=== PATIENT | male | born 1965 | race Caucasian/White ===

== ENCOUNTER → 2016-12-06 | Outpatient (CLI) | payer OTHER | LOC: RAD 08:53 | DX: R05 Cough (principal); R06.02 Shortness of breath ==

== ENCOUNTER → 2017-07-02 | Outpatient (CLI) | payer BC ==
[~2017-07-02] MED LIST: ALEVE220 MG PO; ASPIRIN325 PO; ATORVASTATIN CA40 MG PO; BENADRYL25 MG PO; BUPROPION HCL150 M1 PO; CALCIUM + VITA1 EAC2 PO; DIOVAN 80 MG TA80 M1 PO; FISH OIL 1,2001 EAC4 PO; FLAX SEED OIL1000 MG PO; HAIR SKIN NAIL1 EACH PO; HYDROCODONE-ACE15 ML PO; IRON325 PO; METFORMIN HCL500 MG PO; MULTI VITAMIN1 EACH PO; OMEPRAZOLE40 MG PO; PEPCID20 MG PO; PREDNISONE 20 M20 MG PO; PROBIOTIC1 EAC1 PO; TYLENOL325 MG PO; VITAMIN B125000 MCG PO; VITAMIN E400 UNIT PO; WELLBUTRIN XL300 MG PO; ZYRTEC 10 MG TA10 MG PO
== END ==
LOC: RAD 09:11
DX: R05 Cough (principal)

== ENCOUNTER → 2017-11-19 | Outpatient (CLI) | payer BC ==
--- NOTE | ~2017-11-19 | EKG ---
[address] [address] ELECTROCARDIOGRAM REPORT Name: ALICE MARISCAL Room #: [facility]#: [id number] Admission: 11/19/17 Attend Phys: Priya Briggs MD, Discharge: Date of : 63 Report #: [id number] THIS REPORT FOR: //name// [facility] Test Date: 2017-11-19 Test Time: 11:19:26 Pat Name: ALICE MARISCAL Department: Room: Gender: M Phys Assistant: Donna BAKER : 1965 Requested By: Priya Briggs Order Number: [id number] MD: Farshad Herring Measurements Intervals [place] Rate: 61 P: 22 FL: 157 QRS: 81 QRSD: 109 T: 68 QT: 426 QTc: 429 Interpretive Statements Sinus rhythm Early R-wave progression No previous ECG available for comparison Electronically Signed On 11-19-2017 17:09:04 CDT by Farshad Herring [email or web address] <ELECTRONICALLY SIGNED> By: Farshad Herring MD, [facility] 11/19/17 1709 1119 1119 Farshad Herring MD, FACC /EPI
[2017-11-19 10:25] LABS: BASOPHILS 1.2 % (0.0-2.0); EOSINOPHILS 2.7 % (0.0-3.0); HEMOGLOBIN 15.4 gm/dL (14.0-18.0); MCH 29.8 pg (26.0-34.0); MCHC 33.5 g/dL (28.0-37.0); MCV 88.9 fL (80.0-100.0); MONOCYTES 7.2 % (1.0-8.0); PLATELET COUNT 190 thou/uL (150-400); POLYS 50.9 % (36.0-66.0); RBC 5.17 mil/uL (4.50-6.00); WBC 7.9 thou/uL (4.0-11.0)
[2017-11-19 10:40] LABS: ALBUMIN 4.5 g/dL (3.4-5.0); CALCIUM 9.4 mg/dL (8.5-10.1); CREATININE 0.9 mg/dL (0.7-1.3); POTASSIUM 4.2 mmol/L (3.5-5.1); TOTAL BILIRUBIN 0.5 mg/dL (<0.1-1.0)
== END ==
LOC: RAD 09:53
PROVIDERS: Surgery
DX: M46.04 Spinal enthesopathy, thoracic region (principal); J98.4 Other disorders of lung

== ENCOUNTER 2017-12-02 05:31 | Inpatient (IN) | payer BC ==
[~2017-12-02] VITALS: Ht 180.3 cm; Wt 125.2 kg
--- NOTE | ~2017-12-02 | O ---
[address] [address] OPERATIVE REPORT Name: ALICE MARISCAL Room #: 423-1 [facility] IN ..#: [id number] Admission: 12/02/17 Attend Phys: Priya Briggs MD, Discharge: 12/03/17 Date of : 63 Report #: [id number] THIS REPORT FOR: //name// CC: Priya Rowan DATE OF SERVICE: 12/02/2017 PREOPERATIVE DIAGNOSES: 1. Morbid obesity with a BMI of 40.22. 2. Hypertension. 3. Diabetes mellitus. 4. Obstructive sleep apnea. 5. Chronic fatigue. 6. Lumbago. 7. Hypercholesterolemia. 8. Gastroesophageal reflux disease. 9. Bilateral knee arthralgia. POSTOPERATIVE DIAGNOSES: 1. Morbid obesity with a BMI of 40.22. 2. Hypertension. 3. Diabetes mellitus. 4. Obstructive sleep apnea. 5. Chronic fatigue. 6. Lumbago. 7. Hypercholesterolemia. 8. Gastroesophageal reflux disease. 9. Bilateral knee arthralgia. PROCEDURES PERFORMED: 1. Laparoscopic sleeve gastrectomy. 2. Thorough esophagogastroduodenoscopy (EGD). SURGEON: Priya Briggs M.D. BUS STEWARD: Anoop Moseley DO. ANESTHESIA: General endotracheal anesthesia. ESTIMATED BLOOD LOSS: Minimal (less than 5 mL). COMPLICATIONS: None appreciated. SPECIMENS: Gastric sleeve resection specimen to pathology. [address] [address] OPERATIVE REPORT Name: ALICE MARISCAL Room #: 423-1 [facility]#: [id number] Admission: 12/02/17 Attend Phys: Priya Briggs MD, Discharge: 12/03/17 Date of : 63 Report #: [id number] INDICATIONS: The patient is a 51-year-old morbidly obese male with numerous medical comorbid conditions as delineated above who presented as an outpatient for evaluation of bariatric surgery and assistance with both weight loss and resolution of his comorbid conditions. The patient has been seen by his primary care physician and digital marketing project manager and a psychologist who have all cleared him for bariatric surgery as well as also indicating that it is medically necessary for long-term weight loss and assistance with resolution of his comorbid conditions. The patient has undergone aggressive diet and exercise attempts for the past several months under my direction with no significant sustainable weight loss thus far. As such, indication was for the above-mentioned procedures today. DESCRIPTION OF PROCEDURE: After explaining the risks, benefits and alternatives of the procedure with the patient in detail in the preoperative holding area and obtaining written consent, the patient was brought to the operating room and placed supine on the operating room table. After conducting a thorough timeout procedure verifying correct patient and procedure, the patient was given general endotracheal anesthesia. Once adequate anesthesia was attained, his SCDs were hooked up to pneumatic compression device. He was given a preoperative dose of antibiotics in line with the SCIP protocol. It should be noted that he got a dose of Lovenox 1 hour prior to the operating room as well to prevent venous thromboembolism. The patient's abdomen was now prepped and draped in a standard surgical sterile fashion after positioning him in the low lithotomy position with his legs in the Yellofin stirrups. I began the procedure by performing a thorough EGD. The Bannermann upper endoscope was used to intubate the oropharynx, was traversed down into the esophagus. This was advanced to the second portion of the duodenum where slow careful withdrawal of the scope showed no evidence of duodenitis, gastritis, esophagitis, mass lesions or ulcerations. Retroflexion view of the scope within the gastric lumen showed no evidence of a hiatal hernia. The scope was straightened out with its tip at the level of pylorus where it was taped into position. The stomach was fully desufflated and I sterilely entered the operative field. A 5 mL of 0.5% Marcaine with epinephrine were used to anesthetize the skin in the right upper quadrant, 5 cm cephalad to the umbilicus and 5 cm to the patient's right. A #15 bladed scalpel was used to create a 1.5 cm transverse skin incision at this location. A 15 mm Visiport was placed over 0 degree 5 mm laparoscope and was introduced through this incision site. Once intra-abdominal placement was verified visually, the obturator for the trocar and laparoscope were both removed and the abdomen was insufflated to 15 mmHg using carbon dioxide gas. The laparoscope was changed to a 5-mm 30-degree laparoscope, which was reintroduced through this trocar. The entire abdomen was evaluated to ensure no injury upon entry. I now placed three additional 5 mm trocars in the left mid abdomen. The first was placed 2 cm cephalad to the umbilicus and 2 cm in the patient's left, and an additional one was placed 5 cm lateral to that and a final one was placed in the extreme left lateral flank. All three additional 5 mm ports were placed under direct vision after anesthetizing the skin at each location with 5 mL of 0.5% Marcaine with [facility] [address] [place] [address] OPERATIVE REPORT Name: ALICE MARISCAL Room #: 423-1 [facility] IN [place]#: [id number] Admission: 12/02/17 Attend Phys: Priya Briggs MD, Discharge: 12/03/17 Date of : 63 Report #: [id number] epinephrine and I had created small skin nicks using a #15 bladed scalpel. The laparoscope was removed and changed to the 5 mm port just to the left of patient's umbilicus and he was placed in steep reverse Trendelenburg position. I now placed a Awilda liver retractor in subxiphoid location by anesthetizing the skin at that location with 5 mL of 0.5% Marcaine with epinephrine and I had created small skin geeta using #15 bladed scalpel. The Awilda retractor was placed through this defect where it was positioned up under the left lobe of the liver and was held up against the posterior aspect of the anterior abdominal wall. This gave us complete access to the stomach and hiatal regions and again saw no evidence of a hiatal hernia. I now started my dissection after identifying our landmarks. The vein of Schmidt was identified overlying the pylorus. I measured 4 cm proximal to this location and began taking down the short gastric arteries from this location all the way up the greater curvature of the stomach using Harmonic scalpel for hemostasis. Once I arrived upon the left iván, I dissected anteriorly up the left iván and elevated the stomach anteriorly as well, taking down all posterior gastric attachments staying well away from the posterior wall of the stomach to prevent injury from thermal spread. Now that we had complete mobilization of the stomach, the EGD scope was positioned to run along the lesser curvature of the stomach and the [place] 60 mm stapler with a black load utilizing Barillas's Wanda-Strip buttressing material was placed over it and this was entered in the abdomen through the 15 mm port. This first firing started at the location 4 cm proximal to the pylorus and fired right along, but not extremely tight to the scope, so as not to cause stricturing, especially at the incisura. A second firing again using black load with Barillas's Wanda-Strip buttressing material placed over it was carried out following the scope as a 34-Lao bougie. Five additional firings, all utilizing green loads with Barillas's Wanda-Strip buttressing material was carried out following the scope as a 34-Lao bougie all the way up to the left iván until the stomach was completely transected. This left an excellently oriented sleeve of gastric remnant that was not twisted and there was no bleeding. The resection specimen was placed in the right upper quadrant and 10 mL of Tisseel on the Saperionspray device were now used to coat the entirety of the staple line with fibrin glue after instilling 160 mg of decellularized amniotic powder that was reconstituted in 10 mL of normal saline that was dripped along the staple line to help prevent leaks as well. While this Tisseel overlying the amnion product was drying, the resection specimen was grasped and removed from the abdomen through the 15 mm fascial incision under direct vision. I then closed the 15 mm fascial incision using 0 PDS suture on the Milind-Yannick suture passer device and tied this down under direct vision to ensure I did not catch a loop of bowel or omentum in the suture repair. Now that the Tisseel had dried, normal saline was instilled in the upper abdomen and the EGD scope was reactivated and slowly withdrawn with gentle insufflation of the stomach upon withdrawal to evaluate the staple line from the inside, which showed no bleeding whatsoever. This gentle insufflation allowed me to hold the stomach under the normal saline in the abdomen and performed a leak test and we saw no bubbling thereby signifying a negative leak test. Thus, EGD scope was used to desufflate [facility] [address] [place] [address] OPERATIVE REPORT Name: ALICE MARISCAL Room #: 423-1 [facility]#: [id number] Admission: 12/02/17 Attend Phys: Priya Briggs MD, Discharge: 12/03/17 Date of : 63 Report #: [id number] the stomach, Adamson was removed via the oropharynx, passed off the field and I sterilely entered the operative field once again. Normal saline was suctioned out and it ran clear throughout. The Awilda retractor was removed under direct vision. The abdomen was fully desufflated. All remaining trocars were removed under direct vision. A 4-0 Monocryl was used in a standard subcuticular fashion for all skin incisions and Dermabond glue was applied to all skin wounds. The corner of the resection specimen that had been removed was trimmed away and normal saline was passively instilled into the resection specimen yielding 1850 mL in the resection specimen itself. At the end of the procedure, all instrument, needle and sponge counts were correct. The patient tolerated the procedure without incident, was awakened in the operating room, transitioned to the recovery room in stable condition with no apparent complications. <ELECTRONICALLY SIGNED> By: Priya Briggs MD, FACS 12/05/17 0839 1338 1559 Priya Briggs MD, FACS /nt
--- NOTE | ~2017-12-02 | PATH ---
[facility] [address] [place] [address] PATHOLOGY RPT PROCEDURE Name: ALICE MARISCAL Room #: 423-1 [facility] IN M.R.#: [id number] Admission: 12/02/17 Date of : 63 Discharge: 12/03/17 Report #: [id number] Path Case #: [id number] [facility] Accession Number: [id number] . 01 Material submitted: . PORTION OF STOMACH . 01 Clinical history: . Morbid obesity . 02 Diagnosis: Stomach, portion of stomach, laparoscopic sleeve partial gastrectomy: - No significant diagnostic abnormalities present, history of morbid obesity. (IUV:db; 12/03/2017) LBQ/12/03/2017 . 02 Electronically signed: . Lynn Feliciano MD, Pathologist NPI- [id number] . 01 Gross description: . The specimen is received in formalin, labeled "Alice Beth, portion of stomach (gastric sleeve)". Received is a partial gastrectomy specimen with a stapled margin of resection measuring 30.8 x 7.5 x 4.5 cm in greatest dimensions. The serosal surface is pink-cortez, smooth and glistening in appearance. Opening the specimen reveals pink-cortez to pink-red mucosa with normal rugal folds. A single polyp is identified measuring 0.3 cm in maximum dimensions. The specimen is submitted representatively in cassette A1, to include the aforementioned polyp. (CAA; 12/02/2017) QAC/QAC . 02 Pathologist provided ICD-10: E66.01 . 02 CPT . 265776 Performed at: [address], [place] [id number] MD Jason Peralta MD Phone: [phone] Performed at: [address] [id number] MD Lynn Feliciano MD Phone: [phone]
[~2017-12-02 05:31] MED LIST changes: -BUPROPION HCL150 M1 PO; -HYDROCODONE-ACE15 ML PO; -PEPCID20 MG PO; -PREDNISONE 20 M20 MG PO
[2017-12-02 07:48] VITALS: BP 129/76
[2017-12-02 23:00] VITALS: BP 126/76
[2017-12-03 04:30] VITALS: BP 163/72
[2017-12-03 05:50] LABS: HEMATOCRIT 41.8 % (42.0-52.0); MCH 29.8 pg (26.0-34.0); MCHC 33.4 g/dL (28.0-37.0); MCV 89.2 fL (80.0-100.0); RBC 4.68 mil/uL (4.50-6.00); WBC 11.1 thou/uL (4.0-11.0)
[2017-12-03 06:00] LABS: CALCIUM 8.7 mg/dL (8.5-10.1); CREATININE 0.9 mg/dL (0.7-1.3); POTASSIUM 3.7 mmol/L (3.5-5.1)
[2017-12-03 07:30] VITALS: BP 117/70
[2017-12-03] MEDS ORDERED: HYDROCODONE-ACE15 ML PO (09:30)
[2017-12-03 10:36] VITALS: BP 117/70
== END 2017-12-03 11:25 | disposition home or self-care (01) | DRG 621 ==
LOC: OR 05:31 → TBA 05:31 → OR 14:09 → 4E 15:28 → OR 15:28 → ENTRNSPT 12-03 11:06 → EDTRNSPTSTS 12-03 11:10 → 4E 12-03 11:25
PROVIDERS: Surgery
PROC: 3E0G8GC Introduction of Other Therapeutic Substance into Upper GI, Via Natural or Artificial Opening Endoscopic (ICD-10-PCS; principal; 2017-12-02)
PROC: 0DB64Z3 Excision of Stomach, Percutaneous Endoscopic Approach, Vertical (ICD-10-PCS; principal; 2017-12-02)
DX: E66.01 Morbid (severe) obesity due to excess calories (principal); I10 Essential (primary) hypertension; E11.9 Type 2 diabetes mellitus without complications; E78.00 Pure hypercholesterolemia, unspecified; G47.33 Obstructive sleep apnea (adult) (pediatric); F32.9 Major depressive disorder, single episode, unspecified; F41.9 Anxiety disorder, unspecified; R53.82 Chronic fatigue, unspecified; M54.5 Low back pain; K21.9 Gastro-esophageal reflux disease without esophagitis; M25.562 Pain in left knee; M25.561 Pain in right knee; Z68.41 Body mass index [BMI] 40.0-44.9, adult; Z88.1 Allergy status to other antibiotic agents
CPT/HCPCS: 10783; 50010; 50101; 50222; 50249; 50386; 50555; 50739; 50740; 50962; 51437; 52182; 52265; 53307; 53311; 54022; 54118; 56462; 56525; 56526; 56970; 57092; 62110; 62900; 70005

== ENCOUNTER → 2018-01-08 | Outpatient (CLI) | payer BC ==
[~2018-01-08] MED LIST changes: +BUPROPION HCL150 M1 PO; +HYDROCODONE-ACE15 ML PO
== END ==
LOC: ULTRA 09:21
DX: R16.2 Hepatomegaly with splenomegaly, not elsewhere classified (principal); I10 Essential (primary) hypertension; E78.00 Pure hypercholesterolemia, unspecified; E11.9 Type 2 diabetes mellitus without complications; E66.09 Other obesity due to excess calories

== ENCOUNTER 2018-07-26 09:48 | Emergency (ER) | payer BC ==
[~2018-07-26] VITALS: Ht 180.3 cm; Wt 88.5 kg
[~2018-07-26 09:48] MED LIST changes: +PEPCID20 MG PO; +PREDNISONE 20 M20 MG PO
[2018-07-26 09:50] VITALS: BP 136/81
[2018-07-26 10:08] LABS: ABSOLUTE NEUTROPHILS 8.6 thou/uL (1.4-8.2); BASOPHILS 0.7 % (0.0-2.0); EOSINOPHILS 1.7 % (0.0-3.0); HEMATOCRIT 43.1 % (42.0-52.0); HEMOGLOBIN 14.7 gm/dL (14.0-18.0); MCH 30.8 pg (26.0-34.0); MCV 90.6 fL (80.0-100.0); MONOCYTES 7.4 % (1.0-8.0); PLATELET COUNT 154 thou/uL (150-400); POLYS 71.2 % (36.0-66.0); RBC 4.76 mil/uL (4.50-6.00); RDW 13.7 % (10.5-14.5); WBC 12.1 thou/uL (4.0-11.0)
[2018-07-26 10:26] LABS: CALCIUM 9.2 mg/dL (8.5-10.1); POTASSIUM 3.7 mmol/L (3.5-5.1)
[2018-07-26 10:31] LABS: ALBUMIN 4.4 g/dL (3.4-5.0)
[2018-07-26 12:25] VITALS: BP 124/79
[2018-07-26 15:14] VITALS: BP 124/79
--- NOTE | 2018-07-27 14:18 | O ---
[facility] [place] [address] OPERATIVE REPORT Name: ALICE MARISCAL Room #: 170-9 ADM IN M.R.#: [id number] Admission: 07/26/18 ������������������ Attend Phys: Wang Rowan MD Discharge: ������������������ Date of : 63 Report #: [id number] THIS REPORT FOR: //name// CC: Wang Rowan DATE OF SERVICE: 07/26/2018 PREOPERATIVE DIAGNOSIS: Acute appendicitis. POSTOPERATIVE DIAGNOSIS: Acute appendicitis. PROCEDURE: Laparoscopic appendectomy. SURGEON: Priya Briggs M.D. ASSEMBLER CLIP ON SUNGLASSES: None. ANESTHESIA: General endotracheal anesthesia. ESTIMATED BLOOD LOSS: Minimal (less than 5 mL). COMPLICATIONS: None appreciated. SPECIMENS: Appendix to pathology. INDICATIONS: The patient is a 52-year-old male who presented with right lower quadrant abdominal pain and had a CT scan showing a markedly dilated appendix with periappendiceal stranding and a slight leukocytosis, all consistent with acute appendicitis. As such, indication was for the above-mentioned procedures today. DESCRIPTION OF PROCEDURE: After explaining the risks, benefits and alternatives of the procedure with the patient in detail in the preoperative holding area and obtaining written consent, the patient was brought to the operating room and placed supine on the operating room table. After conducting a thorough timeout procedure verifying correct patient and procedure, the patient was given general endotracheal anesthesia. Once adequate anesthesia was obtained, his SCDs were hooked up to pneumatic compression device. He was given a preoperative dose of antibiotics in line with the SCIP protocol. The patient's abdomen was prepped and draped in standard surgical sterile fashion. 5 mL of 0.5% Marcaine with epinephrine were used to anesthetize the skin in the infraumbilical location. A #15 bladed scalpel was used to create a 1 cm transverse skin incision at this location. A 12 mm Visiport was placed over 0 degree 5 mm laparoscope and was introduced through this incision site. Once intra-abdominal placement was verified visually, the obturator for the trocar and laparoscope were both removed, and the abdomen was insufflated to 15 mmHg using carbon dioxide gas. [address] [address] OPERATIVE REPORT Name: ALICE MARISCAL Room #: 170-9 [facility] IN .R.#: [id number] Admission: 07/26/18 ������������������ Attend Phys: Wang Rowan MD Discharge: ������������������ Date of : 63 Report #: [id number] The laparoscope was changed to a 5-mm 30-degree laparoscope and was reintroduced through this trocar. The entire abdomen was evaluated to ensure no injury upon entry and no pathology outside the right lower quadrant. I now placed two 5 mm working trocars, first in the suprapubic location and second in the left lower quadrant. Both were placed under direct vision after anesthetizing the skin at each location with 5 mL of 0.5% Marcaine with epinephrine. I created small skin nicks using #15 bladed scalpel. The patient was now placed in steep Trendelenburg position with right side elevated, and I was easily able to identify a markedly dilated and edematous appendix. The base of the appendix appeared healthy. A window was made in the mesoappendix near its base using [place] dissector. The laparoscope was then removed, changed the left lower quadrant trocar and the [place] 45 mm stapler with a blue load was entered into the abdomen through the infraumbilical trocar. One blade of the stapler was passed through the window in the mesoappendix. A stapler was clamped and fired transecting the appendix at its healthy base at the level of the cecum. The stapler was removed. The Harmonic scalpel was used to transect the mesoappendix for hemostasis. This completely detached the specimen. The EndoCatch bag was placed in the infraumbilical trocar, and the specimen was placed within it under direct vision. The pursestring suture was drawn, and specimen was removed from the abdomen under direct vision with ease. I then closed the infraumbilical fascial incision using 0 PDS suture on a Milind-Yannick suture passer device under direct vision and tied this down. Evaluation of the staple line showed complete hemostasis. It was healthy at the level of the cecum. There was no spillage or bleeding. The abdomen was fully desufflated. All remaining trocars were removed under direct vision. A 4-0 Monocryl was used in a standard subcuticular fashion for all skin incisions and Dermabond glue was applied to all skin wounds. At the end of the procedure, all instrument, needle and sponge counts were correct. The patient tolerated the procedure without incident, was awakened in the operating room, transitioned to the recovery room in stable condition with no apparent complications. ��������������������������������������������� <ELECTRONICALLY SIGNED> ���������������������������������������� By: Priya Briggs MD, FACS ��������������������������������������������� 07/27/18 1418 1505 1549 Priya Briggs MD, FACS /nt
--- NOTE | 2018-07-29 12:07 | PATH ---
[facility] [address] [place] [address] PATHOLOGY RPT PROCEDURE Name: ALICE MARISCAL Room #: DEP [place]#: [id number] ������������������ Admission: 07/26/18 ������������������ Date of : 63 Discharge: 07/26/18 Report #: [id number] Path Case #: [id number] [facility] Accession Number: [id number] . 01 Material submitted: . APPENDIX . 01 Clinical history: . Acute appendicitis . 02 Diagnosis: Appendix, appendectomy: - Marked acute appendicitis along with acute serositis. - Abundant luminal calcifications. (IUV/db; 07/28/2018) LBQ/07/28/2018 . 02 Electronically signed: . Lynn Feliciano MD, Pathologist NPI- [id number] . 01 Gross description: . Received in formalin labeled "Alice Mariscal, appendix," is a grossly dilated appendix measuring 8.4 cm in length by up to 1.5 cm in diameter with a moderate amount of attached mesoappendix measuring up to 1.7 cm in thickness. The serosal surface is smooth to shaggy and pale cortez to hinton-cortez in appearance, displaying attached fibrous exudate near the distal tip. The proximal margin is closed with a linear staple line; this area is inked black. Serial sectioning reveals a markedly dilated lumen ranging from 0.5 to 1.4 cm in diameter and filled with dark brown, friable fecal material. The proximal margin and bisected distal tip are submitted in cassette A1, and additional account executive sales representative sections are submitted in cassettes A2-A3. ([facility]; 07/27/2018) XDC/XDC . 02 Pathologist provided ICD-10: K35.80 . 02 CPT . 565684 Specimen Comment: A courtesy copy of this report has been sent to Specimen Comment: [phone], . Specimen Comment: Report sent to / DR CROUCH Specimen Comment: A duplicate report has been generated due to demographic updates. Performed at: 01 [place] [address] PATHOLOGY RPT PROCEDURE Name: ALICE MARISCAL Room #: DENI [place]#: [id number] ������������������ Admission: 07/26/18 ������������������ Date of : 63 Discharge: 07/26/18 Report #: [id number] Path Case #: [id number] [address] [address] [facility] [address], [place], [place] [id number] MD Jason Peralta MD Phone: [phone] Performed at: [address] [id number] MD Lynn Feliciano MD Phone: [phone]
== END 2018-07-26 12:27 | disposition still patient (30) ==
LOC: ER 09:48 → EROBS 11:15 → ER 11:15 → EROBS 12:27
PROVIDERS: Physician Assistant
DX: K35.80 Unspecified acute appendicitis (principal); I10 Essential (primary) hypertension; E78.5 Hyperlipidemia, unspecified; G47.30 Sleep apnea, unspecified; K21.9 Gastro-esophageal reflux disease without esophagitis; Z87.891 Personal history of nicotine dependence; Z88.1 Allergy status to other antibiotic agents
CPT/HCPCS: 50010; 50101; 50249; 50411; 50555; 50558; 50739; 50740; 50962; 51975; 52265; 53307; 54022; 54118; 56525; 56526; 62110; 62900; 70005

== ENCOUNTER → 2018-08-18 | Outpatient (CLI) | payer BC | LOC: MRI 13:33 | DX: M47.817 Spondylosis without myelopathy or radiculopathy, lumbosacral region (principal); M51.27 Other intervertebral disc displacement, lumbosacral region; M48.061 Spinal stenosis, lumbar region without neurogenic claudication ==

== ENCOUNTER 2019-01-18 10:03 | Emergency (ER) | payer BC ==
[~2019-01-18] VITALS: Ht 180.3 cm; Wt 113.4 kg
[2019-01-18 10:25] LABS: URINE BILIRUBIN NEGATIVE (Negative); URINE BLOOD 3+ (Negative); URINE CLARITY CLOUDY; URINE COLOR YELLOW; URINE GLUCOSE-RANDOM* NEGATIVE (Negative); URINE KETONES NEGATIVE (Negative); URINE LEUKOCYTES 2+ (Negative); URINE NITRITE POSITIVE (Negative); URINE PROTEIN (DIPSTICK) 2+ (Negative)
[2019-01-18 10:28] LABS: ABSOLUTE NEUTROPHILS 12.3 thou/uL (1.4-8.2); BASOPHILS 0.3 % (0.0-2.0); EOSINOPHILS 0.5 % (0.0-3.0); HEMATOCRIT 44.9 % (42.0-52.0); HEMOGLOBIN 15.3 gm/dL (14.0-18.0); LYMPHOCYTES 9.1 % (24.0-44.0); MCH 30.3 pg (26.0-34.0); MCV 89.2 fL (80.0-100.0); MONOCYTES 6.6 % (1.0-8.0); PLATELET COUNT 180 thou/uL (150-400); POLYS 83.5 % (36.0-66.0); RBC 5.03 mil/uL (4.50-6.00); RDW 13.8 % (10.5-14.5); WBC 14.7 thou/uL (4.0-11.0)
[2019-01-18 10:32] LABS: CASTS None Seen /LPF (None Seen); SQUAMOUS 0-3 Few /LPF (0-3); URINE RBC >20 Many /HPF (0-2)
[2019-01-18 10:33] LABS: BACTERIA >30 Many /HPF (None Seen); CRYSTALS None Seen /LPF (None Seen)
[2019-01-18 10:37] LABS: CALCIUM 9.2 mg/dL (8.5-10.1); CREATININE 0.9 mg/dL (0.7-1.3); POTASSIUM 3.5 mmol/L (3.5-5.1)
[2019-01-18 10:43] LABS: ALBUMIN 4.2 g/dL (3.4-5.0); TOTAL BILIRUBIN 1.4 mg/dL (<0.1-1.0); TOTAL PROTEIN 8.3 g/dL (6.4-8.2)
[2019-01-18] MEDS ORDERED: CIPRO500 MG PO (12:35)
[2019-01-18 12:57] VITALS: BP 128/58
== END 2019-01-18 13:15 | disposition home or self-care (01) ==
LOC: ER 10:03
PROVIDERS: Emergency Medicine
DX: N12 Tubulo-interstitial nephritis, not specified as acute or chronic (principal); F10.10 Alcohol abuse, uncomplicated; I10 Essential (primary) hypertension; F32.9 Major depressive disorder, single episode, unspecified; F41.9 Anxiety disorder, unspecified; K21.9 Gastro-esophageal reflux disease without esophagitis; G47.30 Sleep apnea, unspecified; Z79.899 Other long term (current) drug therapy; Z88.5 Allergy status to narcotic agent; Z88.8 Allergy status to other drugs, medicaments and biological substances; Z90.49 Acquired absence of other specified parts of digestive tract; Z98.84 Bariatric surgery status

== ENCOUNTER → 2019-08-13 | Outpatient (CLI) | payer BC ==
[~2019-08-13] MED LIST changes: +CIPRO500 MG PO
== END ==
LOC: MRI 09:23
DX: M47.816 Spondylosis without myelopathy or radiculopathy, lumbar region (principal); M25.78 Osteophyte, vertebrae; M51.26 Other intervertebral disc displacement, lumbar region; M12.88 Other specific arthropathies, not elsewhere classified, other specified site; M48.061 Spinal stenosis, lumbar region without neurogenic claudication